=== PATIENT | male | born 1975 | race Caucasian/White ===

== ENCOUNTER 2022-03-16 01:16 | Emergency (ER) | payer SELFPAY ==
[~2022-03-16] VITALS: Ht 175.3 cm; Wt 75.0 kg
[2022-03-16] MEDS ORDERED: KETOROLAC 30MG/ML VIAL IV STA (01:55)
[2022-03-16] MEDS ORDERED: TETANUS, DIPHTHERIA, PERTUSSIS VAC/PF 0.5ML (>10YR OLD) IM ONE (02:00)
[2022-03-16] MEDS ORDERED: CEFAZOLIN 1000MG PREMIX 50 ML IV ONE (02:00)
[2022-03-16] MEDS ORDERED: SODIUM CHLORIDE 0.9% 1,000 ML IV ONE (02:00)
[2022-03-16] MEDS ORDERED: LORAZEPAM 2MG/ML CPJ IV ONE ×2 (02:15→04:45)
[2022-03-16 02:37] LABS: BASOPHILS % 0.4 % (0.0-2.0); EOSINOPHILS % 0.1 % (0.0-5.0); HEMATOCRIT. 42.7 % (42.0-52.0); HEMOGLOBIN. 14.7 g/dL (14.0-18.0); LYMPHOCYTES % 11.2 % (20.0-50.0); MEAN CORPUSCULAR HEMOGLOBIN 37.6 pg (28.0-32.0); MEAN CORPUSCULAR VOLUME 109.1 fL (80.0-94.0); MEAN PLATELET VOLUME 8.2 fl (7.4-10.4); MONOCYTES % 8.4 % (2.0-8.0); NEUTROPHILS % 79.9 % (40.0-76.0); PLATELET 72 x1000/uL (130-400); RED BLOOD CELL COUNT 3.92 mill/uL (4.7-6.1)
[2022-03-16 02:53] LABS: CHLORIDE 98 mEq/L (98-107)
[2022-03-16 03:02] LABS: ETHANOL BLOOD 22 mg/dL
[2022-03-16 15:40] VITALS: BP 117/83
== END 2022-03-16 15:55 | disposition home or self-care (01) ==
LOC: ER 01:16
DX: S01.01XA Laceration without foreign body of scalp, initial encounter (principal); F10.229 Alcohol dependence with intoxication, unspecified; Y90.1 Blood alcohol level of 20-39 mg/100 ml; W01.0XXA Fall on same level from slipping, tripping and stumbling without subsequent striking against object, initial encounter; Y93.89 Activity, other specified; Y92.520 Airport as the place of occurrence of the external cause
CPT/HCPCS: 12002; 36415; 70450; 80053; 80320; 82962; 83690; 85025; 86850; 86900; 86901; 90471; 90715; 96361; 96365; 96375; 96376; 99285; J0690; J1885; J2060; J7030; G0480

== ENCOUNTER 2022-03-17 15:24 | Emergency (ER) | payer SELFPAY ==
[~2022-03-17] VITALS: Ht 177.8 cm; Wt 70.0 kg
[2022-03-17 15:46] VITALS: BP 124/70
== END 2022-03-17 17:08 | disposition home or self-care (01) ==
LOC: ER 15:24
DX: S01.81XD Laceration without foreign body of other part of head, subsequent encounter (principal); X58.XXXD Exposure to other specified factors, subsequent encounter; F10.229 Alcohol dependence with intoxication, unspecified; Y90.0 Blood alcohol level of less than 20 mg/100 ml
CPT/HCPCS: 99281